=== PATIENT | male | born 1995 | race Two or more races ===

== ENCOUNTER → 2024-11-16 | Emergency (ER) | payer OTHER ==
[~2024-11-16] VITALS: Ht 170.2 cm; Wt 52.2 kg
[~2024-11-16] MED LIST: ACETAMINOPHEN 500 MG GEL..CAP PO ONE; ACETAMINOPHEN 500 MG GEL..CAP PO STA; CEFTRIAXONE SODIUM 1,000 MG VIAL IM STA; CEFTRIAXONE SODIUM 1,000 MG VIAL ONE; KETOROLAC TROMETHAMINE 60 MG VIAL IM ONE; KETOROLAC TROMETHAMINE 60 MG VIAL IM STA; LIDOCAINE HCL 1% 10ML VIAL ONE
[2024-11-16 02:12] VITALS: BP 106/62; O2SAT 99
[2024-11-16 04:51] LABS: HEMATOCRIT 45.1 % (39.0-48.0); HEMOGLOBIN 15.7 g/dL (13-16.00); MEAN CELL VOLUME 86.1 fL (80.0-100.00); MEAN CORPUSCULAR HGB CONC 34.8 g/dl (32.0-36.0); PLATELET COUNT 218 K/uL (150-450); RED BLOOD COUNT 5.24 M/uL (4.00-6.00); RED CELL DISTRIBUTION WIDTH 13.3 % (11.5-14.5)
== END | disposition home or self-care (01) ==
LOC: ER 02:03
DX: R53.81 Other malaise (principal); J06.9 Acute upper respiratory infection, unspecified; Z20.822 Contact with and (suspected) exposure to COVID-19